=== PATIENT | female | born 1985 | race Caucasian/White ===

== ENCOUNTER 2021-10-02 09:36 | Emergency (ER) | payer OTHER, MEDICAID, SELFPAY ==
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
[2021-10-02 09:54] VITALS: BP 145/94; PULSE 66; RESP 18; TEMP 36.7; O2SAT 98; BMI 32.5
[2021-10-02] MEDS: Ondansetron ODT 4 MG TAB.RAPDIS TRANSLINGU (10:07)
== END 2021-10-02 10:13 | disposition home or self-care (01) ==
PROVIDERS: Emergency Provider Emergency Medicine
DX: S06.0X0A Concussion without loss of consciousness, initial encounter (principal); G44.309 Post-traumatic headache, unspecified, not intractable; V53.5XXA Driver of pick-up truck or van injured in collision with car, pick-up truck or van in traffic accident, initial encounter; Y93.9 Activity, unspecified; Y92.410 Unspecified street and highway as the place of occurrence of the external cause; Y99.9 Unspecified external cause status
CPT/HCPCS: 99283

== ENCOUNTER 2023-07-08 13:16 | Outpatient (AMB) | payer BC, SELFPAY ==
[2023-07-08 13:17] VITALS: BP 118/82; PULSE 109; O2SAT 98; BMI 37.2
--- NOTE | 2023-07-08 13:17 | A.OFFPC_ITS ---
Vital Signs 07/08/23 13:17 Height 5 ft 4.17 in Weight 218 lb BMI 37.2 BP 118/82 Blood Pressure Location Lt brachial Position Sitting Pulse 109 H Pulse Source Pulse Oximeter Pulse Oximetry (%) 98 Oxygen Delivery Method Room Air Intake Visit Reasons: New patient-ADHD Ski [employer] Required: No Accompanied by: Self / Same As Patient Allergies iodine Allergy (Severe, Verified 07/08/23 13:38) hives penicillin G Allergy (Unknown, Verified 07/08/23 13:38) Unknown penicillin V Allergy (Unknown, Verified 07/08/23 13:38) Unknown Penicillins Allergy (Unknown, Verified 07/08/23 13:38) HIVES shellfish Allergy (Severe, Uncoded 07/08/23 13:23) Difficulty Breathing doxycycline Allergy (Unknown, Uncoded 10/01/16 00:00) GI upset percocet Allergy (Unknown, Uncoded 10/01/16 00:00) rash Medication List - Last Reconciled 07/08/23 by Iris Anders, ORTEGA amphetamine ER 20 mg PO QAM dextroamphetamine-amphetamine 10 mg ER 10 mg PO DAILY escitalopram oxalate 20 mg PO DAILY topiramate 100 mg PO BID valacyclovir 500 mg PO DAILY Tobacco use date assessed: 07/08/23 Dental Screening Dental Screen Date: 07/08/23 Did you have a dental visit in the last 12 months?: No Did you have a dental problem in the last 6 months where you did not have access to dental care?: No Was dental information given to patient?: Patient has dentist HPI HPI Comments History of Present Illness Details 38-year-old female new patient presents today to [facility] care. Past medical history significant for benign meningioma, ADHD, anxiety, depression and migraine headaches. Previous patient of Sonia York. 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 Patients anxiety and depression stable on escitalopram 20 mg daily and patient reports she follows with a counselor as needed. Patient's migraine headache stable on topiramate 100 mg b.i.d.. Patient requesting refills on all these medications, RXs sent to patients pharmacy. 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 1. Little interest or pleasure in doing things: not at all 2. Feeling down, depressed, or hopeless: not at all 3. Trouble falling or staying asleep, or sleeping too much: not at all 4. Feeling tired or having little energy: not at all 5. Poor appetite or overeating: not at all 6. Feeling bad about yourself - or that you are a failure or have let yourself or your family down: not at all 7. Trouble concentrating on things, such as reading the newspaper or watching television: not at all 8. Moving or speaking so slowly that other people could have noticed. Or the opposite - being so fidgety or restless that you have been moving around a lot more than usual: not at all 9. Thoughts that you would be better off or of hurting yourself in some way: not at all Total score: 0 01603 - PHQ-9 Billing: Yes Source: Developed by Drs. Gary Lawson, Georgina Melgar, Shmuel Lauren and colleagues, with an educational karla from [employer]. Thrive Questionnaire Date Thrive assessed: 07/08/23 I am a: Patient What is your living situation today?: I have a steady place to live Within the past 12 months, did the food you bought not last and you didn't have the money to get more?: Never true Within the past 12 months, did you worry whether your food would run out before you got money to buy more?: Never true Do you have trouble paying for medicines?: No Do you have trouble getting transportation to medical appointments?: No Do you have trouble paying your heating and electricity bill?: No Do you have trouble taking care of your child, family member or friend?: No Do you have trouble with day-to-day activities such as bathing, preparing meals, shopping, managing finances, etc.?: No Are you currently unemployed and looking for a job?: No Are you interested in more education?: No Please select the resources that you would like help with: None Currently or been in a relationship where the following occur: no concerns reported AUDIT C Alcohol Use Questionnaire (AUDIT-C) 1. How often do you have a drink containing alcohol?: Monthly or less 2. How many drinks containing alcohol do you have on a typical day when you are drinking?: 1 or 2 3. How often do you have six or more drinks on one occasion?: Never Total Score: 1 ANDREI-7 AMB Questionnaire ANDREI-7 Date ANDREI - 7 assessed: 07/08/23 Feeling nervous, anxious, or on edge: 0 = Not at all Not being able to stop or control worryin = Not at all Worrying too much about different things: 0 = Not at all Trouble relaxin = Not at all Being so restless that it is hard to sit still: 0 = Not at all Becoming easily annoyed or irritable: 0 = Not at all Feeling afraid as if something awful might happen: 0 = Not at all Total ANDREI-7 score (0-4 normal; 5-9 mild; 10-14 moderate; 15-21 severe): 0 Source: Developed by Drs. Gary Lawson, Georgina Melgar, Shmuel Lauren and colleagues, with an educational karla from [employer]. ANDREI-7 Assessment Billing ANDREI-7 Assessment Tool: ANDREI-7 Assessment 59511 Review of Systems Const Denies chills, Denies fatigue, Denies fever(s) and Denies poor appetite Eyes Denies no additional complaints ENT Reports Normal hearing present Card Denies chest pain, Denies syncope, Denies rapid heart rate and Denies dyspnea Resp Denies cough and Denies dyspnea GI Denies change in stool character, Denies constipation, Denies diarrhea, Denies nausea and Denies vomiting Denies urinary frequency, Denies dysuria and Denies urinary urgency Neuro Reports Normal hearing present, Denies confusion and Denies syncope Psych Denies confusion Endo Denies fatigue Physical exam (Primary Care) Vital Signs: Last Vital Signs Pulse 109 H 07/08/23 13:17 BP 118/82 07/08/23 13:17 Pulse Ox 98 07/08/23 13:17 Oxygen Delivery Method Room Air 07/08/23 13:17 BMI result Body Mass Index 37.2 Tobacco/Smoking Status: Tobacco use Status Tobacco use date assessed 07/08/23 07/08/23 13:31 Patient Tobacco Use Status Never used Tobacco 07/08/23 13:44 e-Cigarette/Vaping Use Never Used 07/08/23 13:44 PHQ-9: PHQ-9 Score PHQ-9: Total score 0 07/08/23 13:33 Thrive Assessment: Date of Thrive Assessment Date Thrive assessed 07/08/23 07/08/23 13:31 Currently or been in a relationship where the following occur: no concerns reported Const General: No confusion Orientation/consciousness: No confusion HENMT Head: Yes normocephalic and Yes atraumatic Eyes Conjunctivae: conjunctivae normal Chest Chest palpation & inspection: normal inspection of the chest Resp Effort & Inspection: normal respiratory effort Auscultation: clear to auscultation bilaterally, no crackles, no rhonchi and no wheezes Cardio Rate: regular rate Rhythm: regular rhythm Heart sounds: S1 normal heart sound present and S2 normal heart sound present GI Inspection: Yes normal to inspection Neuro General: No confusion Cranial nerves: Yes Normal hearing present Extrem General: No edema Assessment and Plan Assessment & Plan (1) Depression: Code(s): F32.A - Depression, unspecified Plan: Continue escitalopram (2) Anxiety: Code(s): F41.9 - Anxiety disorder, unspecified Plan: Continue escitalopram (3) ADHD: Code(s): F90.9 - Attention-deficit hyperactivity disorder, unspecified type Plan: Continue on Adderall 20 mg daily and 10 mg in the afternoon. Plan Follow up in 1 month. Orders: Orders Varicella IgG Antibody 07/08/23 Z01.84 - Encounter for antibody response examination Complete Blood Count Auto Diff 07/08/23 Z13.0 - Encounter for screening for diseases of the blood and blood-forming organs and certain disorders involving the immune mechanism Vitamin D 25-OH Total 07/08/23 Z13.21 - Encounter for screening for nutritional disorder Vitamin B12 and Folate 07/08/23 Z13.21 - Encounter for screening for nutritional disorder Lipid Panel 07/08/23 Z13.220 - Encounter for screening for lipoid disorders TSH reflex Free T4 07/08/23 Z13.29 - Encounter for screening for other suspected endocrine disorder Comprehensive [place]. Panel Fast 07/08/23 Z13.1 - Encounter for screening for diabetes mellitus MM screening mammo BI 07/08/23 Z12.31 - Encounter for screening mammogram for malignant neoplasm of breast Medications: New topiramate 100 mg PO BID 180 caps 0RF amphetamine ER 20 mg PO QAM 60 ea 0RF dextroamphetamine-amphetamine 10 mg ER 10 mg PO DAILY 60 caps 0RF valacyclovir 500 mg PO DAILY 20 tabs 0RF escitalopram oxalate 20 mg PO DAILY 90 tabs 0RF F32.A - Depression, unspecified, F41.9 - Anxiety disorder, unspecified Coding Level of Care Code New Pt Level 4 (84920) Diagnoses Depression F32.A Anxiety F41.9 ADHD F90.9 Additional Codes ANDREI-7 Assessment Billing - ANDREI-7 Assessment Tool: ANDREI-7 Assessment 88909 ([id number])
== END 2023-07-08 14:09 | disposition home or self-care (01) ==
PROVIDERS: PCP Nurse Practitioner Family; Visit Provider Nurse Practitioner Family
DX: F32.A Depression, unspecified (principal); F41.9 Anxiety disorder, unspecified; F90.9 Attention-deficit hyperactivity disorder, unspecified type
CPT/HCPCS: 99204

== ENCOUNTER 2023-07-21 09:32 | Outpatient (REF) | payer BC, SELFPAY ==
[2023-07-21 10:16] LABS: MANUAL DIFF FLAG NO
[2023-07-21 10:49] LABS: Basophils Absolute Auto 0.1 X10*3/uL (0.0-0.2); Eosinophils Absolute Auto 0.1 X10*3/uL (0.0-0.4); Hemoglobin 13.9 g/dl (12.0-16.0); Imm Gran Abs Auto 0.01 X10*3/uL (0.00-0.03); Imm Gran Pct Auto 0.2 % (0.0-0.4); Lymphocytes Absolute Auto 2.1 X10*3/uL (1.2-4.9); Lymphocytes Percent Auto 41.1 % (20-40); Mean Corpuscular HGB Conc 33.1 g/dl (31.0-35.0); Mean Corpuscular Hemoglobin 30.2 pg (27.0-33.0); Mean Corpuscular Volume 91.3 fL (80.0-98.0); Mean Platelet Volume 10.2 fL (9.4-12.3); Monocytes Absolute Auto 0.5 X10*3/uL (0.1-1.2); Neutrophils Absolute Auto 2.3 x10*3/uL (2.0-8.3); Neutrophils Percent Auto 45.7 % (45-73); Platelet Count 279 X10*3/uL (160-400); Red Cell Distribution Width 12.9 % (11.0-16.0); White Blood Count 5.1 X10*3/uL (4.8-10.8)
[2023-07-21 11:16] LABS: Alanine Aminotransferase 28 U/L (0-31); Albumin Level 3.9 g/dL (3.5-5.0); Alkaline Phosphatase 54 U/L (39-117); Anion Gap 10 (12-20); Aspartate Amino Transferase 21 U/L (5-31); Bilirubin Total 0.3 mg/dL (0.0-1.0); Blood Urea Nitrogen 17 mg/dL (9-16); Calcium 8.8 mg/dL (8.4-10.2); Carbon Dioxide 21 mmol/L (22-29); Chloride 110 mmol/L (96-108); Cholesterol 184 mg/dL (<200); Estimated Glomerular Filt Rate > 60; Glucose Fasting 91 mg/dL (60-99); HDL Cholesterol 64 mg/dL (>40); LDL Cholesterol Calculated 108 mg/dL (<100); Potassium 4.4 mmol/L (3.3-5.1); Sodium 137 mmol/L (135-145); Total Protein 7.1 g/dL (6.5-8.0); Triglycerides 62 mg/dL (<150)
[2023-07-21 11:34] LABS: TSH reflex Free T4 2.48 uIU/mL (0.32-4.0); Vitamin D 25-OH Total 20.1 ng/mL (>30)
[2023-07-21 11:43] LABS: Folate 4.1 ng/mL (> or = 4.0); Vitamin B12 213 pg/mL (200-900)
== END 2023-07-21 09:33 | disposition home or self-care (01) ==
LOC: HO.LAB 09:32
PROVIDERS: PCP Nurse Practitioner Family; Visit Provider Nurse Practitioner Family
DX: Z01.84 Encounter for antibody response examination (principal); Z13.21 Encounter for screening for nutritional disorder; Z13.220 Encounter for screening for lipoid disorders; Z13.29 Encounter for screening for other suspected endocrine disorder; Z13.0 Encounter for screening for diseases of the blood and blood-forming organs and certain disorders involving the immune mechanism
CPT/HCPCS: 36415; 80053; 80061; 82306; 82607; 82746; 84443; 85025; 86787

== ENCOUNTER → 2023-08-19 08:45 | Outpatient (BNV) | payer BC, SELFPAY | PROVIDERS: PCP Nurse Practitioner Family; Visit Provider Radiology Diagnostic Radiology | DX: Z12.31 Encounter for screening mammogram for malignant neoplasm of breast (principal) | CPT/HCPCS: 77063; 77067 ==

== ENCOUNTER 2023-08-19 08:46 | Outpatient (REF) | payer BC, SELFPAY ==
--- NOTE | ~2023-08-19 | MM_ITS ---
EXAMINATION: MM SCREENING DIGITAL BREAST TOMOSYNTHESIS, BILATERAL CLINICAL INFORMATION: Screening. Asymptomatic. COMPARISON: Mammography: This is a baseline mammogram TECHNIQUE: Digital breast tomosynthesis is performed in both the craniocaudal and mediolateral oblique views along with computer-aided detection (CAD). Synthesized 2D images are generated from the tomosynthesis. FINDINGS: There are scattered areas of fibroglandular density (ACR BI-RADS breast composition Category b). There are no significant masses, abnormal calcifications, or other abnormalities. MM/MM tomosynthesis screening BI IMPRESSION: No mammographic evidence of malignancy. ASSESSMENT: BI-RADS BI-RADS 1 - Negative RECOMMENDATION: Routine annual mammography screening. 1 year F/U This examination should not preclude the clinical evaluation of a suspicious palpable abnormality. This patient's information was entered into a reminder system with a target due date for their next mammogram.
== END 2023-08-19 08:47 | disposition home or self-care (01) ==
LOC: HO.MAMMO 08:46
PROVIDERS: PCP Nurse Practitioner Family; Visit Provider Nurse Practitioner Family
DX: Z12.31 Encounter for screening mammogram for malignant neoplasm of breast (principal)
CPT/HCPCS: 77063; 77067

== ENCOUNTER 2023-09-27 13:01 | Outpatient (AMB) | payer BC, SELFPAY ==
[2023-09-27 13:10] VITALS: BP 130/100; PULSE 105; TEMP 36.2; O2SAT 99; BMI 37.9
--- NOTE | 2023-09-27 13:10 | MHC.OFFWIV ---
Intake Vital Signs 09/27/23 13:10 Height 5 ft 4.17 in Weight 222 lb BMI 37.9 BP 130/100 H Blood Pressure Location Lt brachial Position Sitting Pulse 105 H Pulse Source Pulse Oximeter Temp 97.2 F Temp Source Temporal Artery Scan Pulse Oximetry (%) 99 Oxygen Delivery Method Room Air Intake Visit Reasons: EP Loss of voice/sinus/[id number] Intake Note: pt is here today for loss of voice sinus congestion started 11 days ago Patient Tobacco Use Status: Never used Tobacco Allergies iodine Allergy (Severe, Verified 09/27/23 13:10) hives penicillin G Allergy (Unknown, Verified 09/27/23 13:10) Unknown penicillin V Allergy (Unknown, Verified 09/27/23 13:10) Unknown Penicillins Allergy (Unknown, Verified 09/27/23 13:10) HIVES shellfish Allergy (Severe, Uncoded 07/08/23 13:23) Difficulty Breathing doxycycline Allergy (Unknown, Uncoded 10/01/16 00:00) GI upset percocet Allergy (Unknown, Uncoded 10/01/16 00:00) rash Medication List - Last Reconciled 09/27/23 by DIMPLE Curtis amphetamine ER 20 mg PO QAM azelastine intranasal benzonatate 200 mg PO TID PRN cholecalciferol (vitamin D3) 25 mcg PO DAILY dextroamphetamine sulfate 10 mg PO DAILY doxycycline hyclate 100 mg PO BID 7 days escitalopram oxalate 20 mg PO DAILY fluconazole 150 mg PO Q3D 2 doses prednisone prednisone 5 mg: take 8 tablets (40 mg) on Day 1; 7 tablets (35 mg) on Day 2; then decrease by 1 tablet every day until finished PO topiramate 100 mg PO BID valacyclovir 500 mg PO DAILY Do you need a note to return to daycare/school/sports/work: Yes HPI HPI Comments History of Present Illness Details 38-year-old female presents today complaining of congestion sinus pain and pressure times 10 days. She states it started as a upper respiratory infection and now she has significant headache sinus pain [facility] Medical History (Updated 09/27/23 @ 15:19 by DIMPLE Curtis) Benign meningioma Migraine Surgical History (Updated 07/08/23 @ 13:42 by ORTEGA Gómez) S/P cholecystectomy Family History (Updated 07/08/23 @ 13:43 by ORTEGA Gómez) Mother Glaucoma Father Liver failure Alcoholism Social History (Updated 07/08/23 @ 13:44 by ORTEGA Gómez) Housing: Apartment Alcohol intake: current Alcohol intake frequency: a few times a month Patient Tobacco Use Status: Never used Tobacco e-Cigarette/Vaping Use: Never Used service: No Current occupational status: employed 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 Current occupational exposures/hazards: Yes Cognitive needs: No Hearing needs: No Vision needs: Yes Review of Systems Const Reports body aches, Reports chills, Reports fatigue, Reports fever(s) and Reports headache(s) ENT Reports headache(s), Reports nasal congestion, Reports nasal discharge, Reports sinus pain, Reports sinus pressure and Reports sore throat Resp Reports chest congestion and Reports cough Musc Reports myalgias Neuro Reports headache(s) Endo Reports fatigue Physical Exam Vital Signs: Last Vital Signs Temp 97.2 F 09/27/23 13:10 Pulse 105 H 09/27/23 13:10 BP 130/100 H 09/27/23 13:10 Pulse Ox 99 09/27/23 13:10 Oxygen Delivery Method Room Air 09/27/23 13:10 BMI result Body Mass Index 37.9 HEENT Head: Yes normal to inspection, Yes normocephalic and Yes atraumatic Ears: hearing grossly normal bilaterally, external ears normal, TM's normal bilaterally, TM normal on the right and TM normal on the left General nose exam: Normal external nose present Face and sinus: Yes normal facial exam and Yes sinus tenderness Mouth: Normal oral and palatal mucosa present Teeth and gingiva: dentition normal Throat: Yes posterior oropharynx normal Eyes General: appearance normal, both eyes and all related structures Resp Effort & Inspection: normal respiratory effort Auscultation: clear to auscultation bilaterally Cardio Rate: regular rate Rhythm: regular rhythm Heart sounds: S1 normal heart sound present and S2 normal heart sound present Assessment & Plan Assessment & Plan (1) Upper respiratory infection: Code(s): J06.9 - Acute upper respiratory infection, unspecified Plan The patient will be put on doxycycline and prednisone. Follow up with the PCP as needed Medications: New prednisone prednisone 5 mg: take 8 tablets (40 mg) on Day 1; 7 tablets (35 mg) on Day 2; then decrease by 1 tablet every day until finished PO 21 ea 0RF doxycycline hyclate 100 mg PO BID 7 days 14 caps 0RF fluconazole may repeat second dose 72 hrs after first dose if symptoms persist 150 mg PO Q3D 2 tabs 0RF Coding Level of Care Code Est Pt Level 3 (17589) Diagnoses Upper respiratory infection J06.9 Time Spent (min) 20
== END 2023-09-27 15:16 | disposition home or self-care (01) ==
PROVIDERS: PCP Nurse Practitioner Family; Visit Provider Physician Assistant Medical
DX: J06.9 Acute upper respiratory infection, unspecified (principal)
CPT/HCPCS: 99213